=== PATIENT | male | born 1955 | race Caucasian/White ===

== ENCOUNTER → 2021-08-08 | Outpatient (CLI) | payer OTHER | LOC: CARD 12:15 | PROVIDERS: ATTEND Family Medicine | DX: I49.9 Cardiac arrhythmia, unspecified (principal) | CPT/HCPCS: 93005; 93225; 93226 ==

== ENCOUNTER → 2021-08-26 | Outpatient (CLI) | payer OTHER ==
[~2021-08-26] MED LIST: CATHETER FLUSH 10 ML SYR IV PRN; HOLD METFORMIN - RECEIVED CONTRAST 20 ML VIAL IV SCH; IOHEXOL 350 MG/ML 100 ML (OMNIPAQUE 350) VIAL IV ONE; NS 100 ML (IVPB) BAG IV ONE
[2021-08-26 09:09] LABS: CREATININE SERUM 0.93 MG/DL (0.60-1.30)
--- NOTE | 2021-08-26 12:30 | Diagnostic Imaging Report ---
CT ANGIO NECK W INDICATION: Carotid artery stenosis COMPARISON: None available. TECHNIQUE: CT imaging of the neck and head was performed with IV contrast. 3-D MIP reformats are created and submitted. Automatic exposure is utilized for dose optimization. FINDINGS: The aortic arch is normal in caliber without dissection. Great vessels of the aortic arch are widely patent. The bilateral common carotid arteries are normal. A large amount of calcified atherosclerotic plaquing is present in the proximal right ICA and this results in 60% stenosis per NASCET criteria. Atherosclerotic calcification in the proximal left ICA resulting in 50% stenosis per NASCET criteria. The cervical divisions of the internal carotid arteries are otherwise widely patent. The origins of the bilateral vertebral arteries are normal. Vertebral arteries are codominant and have no stenosis or dissection. No cervical lymphadenopathy. The thyroid has multiple nodules present, largest of which measures 2.0 x 1.4 cm in the right lobe. Distal internal carotid arteries are widely patent and there is no terminal aneurysm. The M1 and M2 divisions of the middle cerebral arteries are patent. Anterior cerebral arteries are normal. There is no saccular aneurysm within the anterior circulation. Basilar artery is widely patent and there is no terminal aneurysm. Posterior cerebral arteries are normal. No aneurysm within the posterior communicating arteries. Dural venous sinuses are patent. IMPRESSION: 1. There is between 50-60% stenosis of the proximal internal carotid arteries on both sides, greater on the right. 2. Widely patent vertebral arteries without stenosis or dissection. 3. No intracranial large vessel occlusion or saccular aneurysm. Dictated by: Dictated on workstation # [id number]
== END ==
LOC: CARD 10:00
PROVIDERS: ATTEND Internal Medicine Cardiovascular Disease
DX: I65.23 Occlusion and stenosis of bilateral carotid arteries (principal); I10 Essential (primary) hypertension; I25.10 Atherosclerotic heart disease of native coronary artery without angina pectoris
CPT/HCPCS: 36415; 70498; 82565; 84520; 93306

== ENCOUNTER → 2021-09-10 | Outpatient (CLI) | payer OTHER ==
[~2021-09-10] VITALS: Ht 177 cm; Wt 66.0 kg
[~2021-09-10] MED LIST changes: -CATHETER FLUSH 10 ML SYR IV PRN; -HOLD METFORMIN - RECEIVED CONTRAST 20 ML VIAL IV SCH; -IOHEXOL 350 MG/ML 100 ML (OMNIPAQUE 350) VIAL IV ONE; -NS 100 ML (IVPB) BAG IV ONE; +REGADENOSON 0.4 MG/5 ML SYR (LEXISCAN) IV ONE
[2021-09-10] MEDS: CATHETER FLUSH 10 ML SYR IVP PRN ×2 (07:04→08:59)
[2021-09-10 08:58] VITALS: BP 182/86
--- NOTE | 2021-09-10 14:46 | Cardiology Stress Test Report ---
Stress Test Report Date of Procedure/Referring: Date of Procedure: Sep 10, 2021 PCP Megan Kapadia DO Admitting Physician Admitting Physician: Attending Physician: Mir Heredia MD Indications: CP Baseline Heart Rate: 63 Baseline Blood Pressure: Blood Pressure Systolic: 182 Blood Pressure Diastolic: 86 Baseline Vitals Vital Signs Date Time Temp Pulse Resp B/P (MAP) Pulse Ox O2 Delivery O2 Flow Rate FiO2 09/10/21 08:58 62 20 182/86 (118) 99 Room Air Baseline EKG: Baseline EKG: NSR Summary After explaining the procedure to the patient, he signed a consent and then brought to the stress nuclear laboratory. Patient received 0.4 mg Lexiscan for stress test, ECG, heart rate and blood pressure were monitored continuously. Resting and stress dose of radio tracer were injected, imaging was acquired and reviewed in short axis, horizontal long axis and vertical long axis views. TID: 1.13 SSS: 1 SDS: 0 EF: 39 1. Patient tolerated Lexiscan well 2. Diaphragmatic attenuation with no significant ischemia or infarction on SPECT images 3. Normal left ventricular size with mild hypokinesia of the inferior wall and inferoseptum, ejection fraction 39% Copy Copies To 1: MEGAN KAPADIA BASHAR J MD Sep 10, 2021 14:46
== END ==
LOC: CARD 07:30
PROVIDERS: ATTEND Internal Medicine Cardiovascular Disease
DX: I25.10 Atherosclerotic heart disease of native coronary artery without angina pectoris (principal); I10 Essential (primary) hypertension
CPT/HCPCS: 78452; 93017